=== PATIENT | female | born 1935 | race Caucasian/White ===

== ENCOUNTER → 2020-01-09 10:50 | Outpatient (BNVA) | payer MEDICARE, MEDICAID, SELFPAY | PROVIDERS: Family Provider Nurse Practitioner Family; PCP Nurse Practitioner Family; Visit Provider Emergency Medicine | DX: I10 Essential (primary) hypertension (principal); N18.9 Chronic kidney disease, unspecified; E87.6 Hypokalemia; G47.62 Sleep related leg cramps | CPT/HCPCS: 80053; 83880; 85025 ==

== ENCOUNTER → 2020-10-01 09:36 | Outpatient (BNVA) | payer MEDICARE, MEDICAID, SELFPAY | PROVIDERS: Family Provider Nurse Practitioner Family; PCP Nurse Practitioner Family; Visit Provider Emergency Medicine | DX: E87.6 Hypokalemia (principal); N18.9 Chronic kidney disease, unspecified; M25.569 Pain in unspecified knee; Z79.899 Other long term (current) drug therapy | CPT/HCPCS: 73562; 80053; 84443; 85025 ==

== ENCOUNTER → 2022-02-22 09:51 | Outpatient (BNVA) | payer MEDICARE, MEDICAID, SELFPAY | PROVIDERS: Family Provider Nurse Practitioner Family; Visit Provider Nurse Practitioner Family | DX: M79.672 Pain in left foot (principal) | CPT/HCPCS: 73630 ==

== ENCOUNTER → 2022-04-12 09:53 | Outpatient (BNVA) | payer MEDICARE, MEDICAID, SELFPAY | PROVIDERS: Family Provider Nurse Practitioner Family; PCP Family Medicine; Visit Provider Family Medicine | DX: I10 Essential (primary) hypertension (principal); K21.9 Gastro-esophageal reflux disease without esophagitis; M79.606 Pain in leg, unspecified; N18.9 Chronic kidney disease, unspecified; Z74.09 Other reduced mobility; Z78.9 Other specified health status; R54 Age-related physical debility; Z91.81 History of falling; I16.0 Hypertensive urgency; M79.605 Pain in left leg; E87.6 Hypokalemia; Z13.220 Encounter for screening for lipoid disorders; Z13.6 Encounter for screening for cardiovascular disorders; Z76.89 Persons encountering health services in other specified circumstances; R42 Dizziness and giddiness | CPT/HCPCS: 80053; 80061; 85025 ==

== ENCOUNTER 2022-07-27 13:25 | Emergency (ER) | payer MEDICARE, MEDICAID, SELFPAY ==
[2022-07-27 13:33] VITALS: BP 181/92; PULSE 72; RESP 14; TEMP 36.8; O2SAT 100
--- NOTE | 2022-07-27 13:43 | XRR_ITS ---
PROCEDURE INFORMATION: Exam: XR Chest Exam date and time: 07/27/2022 2:08 PM Age: 86 years old Clinical indication: Other: AMS; Covid positive TECHNIQUE: Imaging protocol: Radiologic exam of the chest. Views: 1 view. COMPARISON: No relevant prior studies available. FINDINGS: Lungs: There is minimal opacity in the left lung base suggesting subsegmental atelectasis or scarring. There is no consolidation. The right lung is clear. Pleural spaces: There is no pleural effusion or pneumothorax. Heart/Mediastinum: The thoracic aorta is ectatic. Heart size is normal. Bones/joints: Bones are unremarkable. XR/XR chest 1V portable [id number] IMPRESSION: No acute findings.
--- NOTE | 2022-07-27 13:44 | CT_ITS ---
WS: [id number] CT HEAD NONCONTRAST HISTORY: AMS, hallucinating TECHNIQUE: Contiguous axial imaging performed through the brain in 2.5 mm imaging. Bone and soft tiss ue windows. Sagittal and coronal reformats reviewed. All CT scans at [facility] use at least one of these dose optimization techniques: automated exposure control; mA and/or kV adjustment per pa tient size (includes targeted exams where dose is matched to clinical indication); or iterative recon struction. DLP: 1129.70 mGy-cm. COMPARISON: None available. No acute intracranial hemorrhage, midline shift or mass effect. Mild symmetric atrophy. Mild small vessel ischemic disease. Densely calcified mass RIGHT posterior fa lcine region measures 2.0 x 2.3 cm. Do believe there is a dural tail and this is probably an extra-ax ial mass consistent with a meningioma. There is an additional much smaller extra-axial mass measuring 0.4 cm over the posterior RIGHT parietal region. Ventricles: Normal size with no hydrocephalus. Paranasal sinuses: Mild mucoperiosteal thickening in the LEFT maxillary sinus. Mastoid air cells: Small amount of fluid RIGHT mastoid air cells. Calvarium and scalp: Skull is intact with no soft tissue edema or swelling. Heavy calcification in the intracranial carotid arteries. CT/CT head wo con* [id number] IMPRESSION: 1. No acute intracranial hemorrhage or edema. 2. Mild atrophy and small vessel ischemic disease. 3. Superior posterior RIGHT parafalcine heavily calcified extra-axial mass roxanne sures 2.0 x 2.3 cm consistent with a small meningioma. There is an additional s mall meningioma in the posterior RIGHT parietal region measuring only 4 mm.
--- NOTE | 2022-07-27 13:44 | W.ED.AMS ---
Documented by User: JOSÉ LUIS Gomez 07/27/22 16:46 HPI - Altered Mental Status General: Chief Complaint: Altered Mental Status Stated Complaint: COVID POSITIVE Time Seen by Provider: 07/27/22 13:30 Source: patient and EMS Mode of arrival: EMS Limitations: altered mental status History of Present Illness: Patient is an 86-year-old female presents to ED today from [facility] via EMS for evaluation of altered mental status. EMS states that patient tested positive for COVID a few days ago and they re-tested her again today which again was positive. They state patient is having confusion and altered mental status stating she is having auditory and visual hallucinations. They have not documented any fevers. Upon arrival patient can tell me her name. She cannot tell me her , the date or location. Her speech is disorganized/illogical-she telling me not to put pig's feet on her and not to lock her in the basement. She also reportedly is seeing babies down the hallway. [facility] states that patient was staggering around facility, acting bizarre, states she picked up her TV and bedside commode and placed behind her bedroom door and then was screaming that staff was barricading her in her room, she threatened staff that she was going to kill them, and overall just acting very uncharacteristic for her. MD complaint: altered mental status, confusion and other (COVID +) Onset (ago): day(s) Timing confirmed by: caregiver Severity: moderate Context: other (COVID +) Associated symptoms: Reports auditory hallucinations and visual hallucinations Review of Systems General: Reports: ROS unobtainable due to medical condition and ROS unobtainable due to mental status Psych: Reports: visual hallucinations and auditory hallucinations [facility] ED PFSH: Medical History CKD (chronic kidney disease) History of essential hypertension Hypertension Hypokalemia Misuse of [id number] medications Social History Smoking and tobacco status: current every day smoker Alcohol intake: never Female Reproductive History: Spontaneous abortions: No Physical Exam Const: COMMON NORMALS: no acute distress, average body habitus, alert and well nourished EXAM LIMITATIONS: altered mental status GENERAL APPEARANCE: cooperative ORIENTATION/CONSCIOUSNESS: Yes awake and Yes confused HENMT: COMMON NORMALS: normocephalic and atraumatic HEAD & SCALP: normal to inspection, normocephalic and atraumatic FACE & SINUS: normal facial exam Eye: GENERAL EYE: appearance normal, both eyes and all related structures Neck/C-Spine: COMMON NORMALS: full ROM, no lymphadenopathy and no meningeal signs GENERAL: Yes normal visual inspection, No anterior neck swelling and No submandibular swelling Chest: COMMONS NORMALS: normal inspection of the chest and normal palpation of entire chest wall Resp: COMMON NORMALS: normal respiratory effort and clear to auscultation bilaterally AUSCULTATION: clear to auscultation bilaterally Cardio: COMMON NORMALS: regular rate and regular rhythm RATE: regular rate RHYTHM: regular rhythm GI: COMMON NORMALS: Normal to inspection, nondistended, normoactive bowel sounds present, Soft to palpation, non-tender, No hepatosplenomegaly present and no masses PALPATION: Yes Soft to palpation and Yes No hepatosplenomegaly present : COMMON NORMALS: Yes no CVA tenderness BLADDER/KIDNEY EXAM: Yes no CVA tenderness Back/Pelvis: COMMON NORMALS: no CVA tenderness, thoracic and lumbar spine normal to inspection, no thoracic nor lumbar tenderness and thoraco-lumbar ROM normal Extremity: COMMON NORMALS: normal to inspection GENERAL: Yes normal exam except as noted Neuro: LAURA COMA SCALE: document GCS findings Laura coma scale eye opening: Spontaneous Laura coma scale verbal response: Confused Laura coma scale motor response: Obey commands [place] coma scale total score: 14 COMMON NORMALS: CN's II-XII intact bilaterally, moves all extremities, no focal motor deficits and no sensory deficits noted SENSORIUM/ORIENTATION: Yes alert MENINGEAL SIGNS: Yes no meningeal signs Skin: TRAUMA: no lacerations or abrasions Course Consultations: Consultation #1: Dr. Jones-recommends discharge back to [facility] with Geodon they can give for agitation/delirium Vital Signs: Vital signs: Vital Signs Temperature 98.2 F 07/27/22 13:33 Pulse Rate 67 07/27/22 21:09 Respiratory Rate 14 07/27/22 13:33 Blood Pressure 178/83 07/27/22 21:09 Pulse Oximetry 98 07/27/22 21:09 Oxygen Delivery Me thod 07/27/22 13:33 MDM - Altered Mental Status Medical Decision Making Patient is an 86-year-old female here from her SNF [facility] for evaluation of altered mental status. Patient tested positive for COVID several days ago. They retested her today and she was again positive. They state at home she has not been acting like herself and has been acting very bizarre and even aggressive at times. Upon arrival patient has normal vital signs apart from some hypertension which she does have a history of. She is clearly confused and altered and cannot provide much of a history. Speech is bizarre and illogical. Blood work overall is fairly unremarkable. She is slightly leukopenic which is consistent with her known COVID diagnosis. Chemistry shows mild hypokalemia at 3.4. She has got a minor bump in her creatinine at 1.3 consistent with her known chronic kidney disease. Her UA is clear. Drug screen is negative. CXR is normal. Head CT showing no acute findings. She does have incidental meningiomas. I spoke to the hospitalist to try to admit for altered mental status/acute delirium secondary to COVID but they feel patient is stable for discharge back to her [facility] as there is limited treatment options from a hospital setting. I spoke to Mira Cruz who feels comfortable taking patient back. Specialist had recommended placing patient on a low-dose Geodon (5mg) however this medication only comes in capsules with 20mg being the lowest dose. I spoke to Dr. Hurst who recommended placing patient on 0.125 mg risperidone. Return to ED precautions were discussed with Mira Cruz. Lab Data 07/27/22 14:40 07/27/22 14:40 Radiology Impressions Chest X-Ray 07/27/22 13:43 IMPRESSION: No acute findings. Head CT 07/27/22 13:44 IMPRESSION: 1. No acute intracranial hemorrhage or edema. 2. Mild atrophy and small vessel ischemic disease. 3. Superior posterior RIGHT parafalcine heavily calcified extra-axial mass measures 2.0 x 2.3 cm consistent with a small meningioma. There is an additional small meningioma in the posterior RIGHT parietal region measuring only 4 mm. Laboratory Results WBC 2.9 10^3/uL (4.0-10.0) L 07/27/22 14:40 RBC 4.02 10^6/uL (4.1-5.3) L 07/27/22 14:40 Hgb 12.4 g/dL (11.5-15.3) 07/27/22 14:40 Hct 36.4 % (37.0-47.0) L 07/27/22 14:40 MCV 90.5 fl (81-99) 07/27/22 14:40 MCH 30.8 pg (28.0-34.0) 07/27/22 14:40 MCHC 34.1 g/dL (30.0-36.0) 07/27/22 14:40 RDW 12.7 % (12.1-15.1) 07/27/22 14:40 Plt Count 187 10^3/cmm (130-400) 07/27/22 14:40 MPV 10.3 fL (7.4-10.4) 07/27/22 14:40 Neut % (Auto) 59.2 % 07/27/22 14:40 Lymph % (Auto) 26.2 % 07/27/22 14:40 Addison % (Auto) 14.0 % 07/27/22 14:40 Eos % (Auto) 0.0 % 07/27/22 14:40 Baso % (Auto) 0.3 % 07/27/22 14:40 Neut # (Auto) 1.69 10^3/uL (1.8-7.7) L 07/27/22 14:40 Lymph # (Auto) 0.8 10^3/uL (0.8-4.8) 07/27/22 14:40 Addison # (Auto) 0.4 10^3/uL (0.2-0.9) 07/27/22 14:40 Eos # (Auto) 0.0 10^3/uL (0.0-0.8) 07/27/22 14:40 Baso # (Auto) 0.0 10^3/uL (0.0-0.1) 07/27/22 14:40 Nucleated RBC % (auto) 0 % 07/27/22 14:40 Nucleated RBCs # 0.0 /100WBC 07/27/22 14:40 Sodium 136 mmol/L (136-145) 07/27/22 14:40 Potassium 3.4 mmol/L (3.5-5.1) L 07/27/22 14:40 Chloride 96 mmol/L (98-107) L 07/27/22 14:40 Carbon Dioxide 28 mmol/L (22-29) 07/27/22 14:40 Anion Gap 15.4 (5-19) 07/27/22 14:40 BUN 16 mg/dL (8-23) 07/27/22 14:40 Creatinine 1.3 mg/dL (0.5-0.9) H 07/27/22 14:40 GFR Calculation Not Reportable 07/27/22 14:40 Glucose 86 mg/dL (65-115) 07/27/22 14:40 Calculated Osmolality 282 mOsm/kg (285-295) L 07/27/22 14:40 Lactic Acid 0.8 mmol/L (0.5-2.2) 07/27/22 14:40 Calcium 9.0 mg/dL (8.5-10.5) 07/27/22 14:40 Total Bilirubin 0.6 mg/dL (0.15-1.2) 07/27/22 14:40 AST 37 U/L (0-32) H 07/27/22 14:40 ALT 20 U/L (0-33) 07/27/22 14:40 Alkaline Phosphatase 63 U/L (35-105) 07/27/22 14:40 Total Protein 6.9 g/dL (6.6-8.7) 07/27/22 14:40 Albumin 4.2 g/dL (3.5-5.2) 07/27/22 14:40 Globulin 2.7 g/dL (1.3-4.6) 07/27/22 14:40 Procalcitonin 0.11 ng/mL (0-0.5) 07/27/22 14:40 Urine Color Triny (Yellow) 07/27/22 13:58 Urine Appearance Clear (CLEAR) 07/27/22 13:58 Urine pH 6 (5-7) 07/27/22 13:58 Ur Specific [place] 1.020 (1.005-1.030) 07/27/22 13:58 Urine Protein Neg (Negative) 07/27/22 13:58 Urine Glucose (UA) Norm (Normal) 07/27/22 13:58 Urine Ketones Negative (Negative) 07/27/22 13:58 Urine Blood Neg (Negative) 07/27/22 13:58 Urine Nitrate Negative (Negative) 07/27/22 13:58 Urine Bilirubin Neg (Negative) 07/27/22 13:58 Urine Urobilinogen Neg mg/dL (Negative) 07/27/22 13:58 Ur Leukocyte Esterase Negative (Negative) 07/27/22 13:58 Salicylates < 0.3 mg/dL (3-10) L 07/27/22 14:40 Urine Opiates Screen Negative ng/mL (Negative) 07/27/22 13:58 Acetaminophen < 5.0 ug/mL (10-30) L 07/27/22 14:40 Ur Barbiturates Screen Negative ng/mL (Negative) 07/27/22 13:58 Ur Phencyclidine Scrn Negative ng/mL (Negative) 07/27/22 13:58 Ur Amphetamines Screen Negative ng/mL (Negative) 07/27/22 13:58 U Benzodiazepines Scrn Negative ng/mL (Negative) 07/27/22 13:58 Urine Cocaine Screen Negative ng/mL (Negative) 07/27/22 13:58 U Marijuana (THC) Screen Negative ng/mL (Negative) 07/27/22 13:58 Discharge Plan Discharge Patient Disposition: Home Clinical Impression: Acute delirium, COVID-19 Condition: Stable Prescriptions: New risperidone 0.25 mg tablet 0.125 mg PO DAILY PRN (Reason: agitation) Qty: 10 0RF Rx Instructions: Start 1/2 tab (0.125mg) daily as needed for agitation. Can increase to full tab daily if lower dose not effective. No Action omeprazole 40 mg capsule,delayed release(DR/EC) 40 mg PO DAILY 90 Days Qty: 90 0RF acetaminophen 325 mg Tablet 325 mg PO QID PRN (Reason: Pain) irbesartan-hydrochlorothiazide 150-12.5 mg Tablet 2 tab PO DAILY meloxicam 15 mg Tablet 15 mg PO BEDTIME Milk of Magnesia 400 mg/5 mL Suspension 30 ml PO DAILY PRN (Reason: Constipation) Dulcolax (bisacodyl) 10 mg Suppository 10 mg AR DAILY PRN (Reason: Constipation) magnesium citrate Solution 300 ml PO DAILY PRN (Reason: Constipation) Mylanta 200-200-20 mg/5 mL Suspension 30 ml PO Q2H PRN (Reason: Indigestion) Rx Instructions: administer between meals Mucinex 600 mg Tablet Extended Release 12hr 600 mg PO Q12H Rx Instructions: x 5 days Mucinex 600 mg Tablet Extended Release 12hr 600 mg PO Q12H PRN (Reason: Congestion) Discharge Orders: Discharge ED (Routine); Ordered 07/27/22 Ordered By: Ebony Encarnacion Referrals: Priyanka Tariq MD [Primary Care Provider] - Coding Level of Care Code ED Cabin Service Agent for Chg Fwd Documented by User: SYLVIA Bear 07/27/22 21:08 HPI - Altered Mental Status General: Chief Complaint: Altered Mental Status Stated Complaint: COVID POSITIVE Time Seen by Provider: 07/27/22 13:30 PFSH ED PFSH: Medical History CKD (chronic kidney disease) History of essential hypertension Hypertension Hypokalemia Misuse of [id number] medications Social History Smoking and tobacco status: current every day smoker Alcohol intake: never Physical Exam Neuro: LAURA COMA SCALE: document GCS findings Laura coma scale total score: 14 Course Vital Signs: Vital signs: Vital Signs Temperature 98.2 F 07/27/22 13:33 Pulse Rate 67 07/27/22 21:09 Respiratory Rate 14 07/27/22 13:33 Blood Pressure 178/83 07/27/22 21:09 Pulse Oximetry 98 07/27/22 21:09 Oxygen Delivery Me thod 07/27/22 13:33 MDM - Altered Mental Status Medical Decision Making Patient is an 86-year-old female here from her SNF [facility] for evaluation of altered mental status. Patient tested positive for COVID several days ago. They retested her today and she was again positive. They state at home she has not been acting like herself and has been acting very bizarre and even aggressive at times. Upon arrival patient has normal vital signs apart from some hypertension which she does have a history of. She is clearly confused and altered and cannot provide much of a history. Speech is bizarre and illogical. Blood work overall is fairly unremarkable. She is slightly leukopenic which is consistent with her known COVID diagnosis. Chemistry shows mild hypokalemia at 3.4. She has got a minor bump in her creatinine at 1.3 consistent with her known chronic kidney disease. Her UA is clear. Drug screen is negative. CXR is normal. Head CT showing no acute findings. She does have incidental meningiomas. I spoke to the hospitalist to try to admit for altered mental status/acute delirium secondary to COVID but they feel patient is stable for discharge back to her [facility] as there is limited treatment options from a hospital setting. I spoke to Mira Cruz who feels comfortable taking patient back. Specialist had recommended placing patient on a low-dose Geodon (5mg) however this medication only comes in capsules with 20mg being the lowest dose. I spoke to Dr. Hurst who recommended placing patient on 0.125 mg risperidone. Return to ED precautions were discussed with Miar Cruz. 2106?patient getting ready to be discharged back to the [facility] and blood pressure hypertensive 181/92. I discussed this patient with Dr. Mcdaniel and he agreed with dosing patient with hydralazine 10 mg IV push prior to discharge. Lab Data 07/27/22 14:40 07/27/22 14:40 Radiology Impressions Chest X-Ray 07/27/22 13:43 IMPRESSION: No acute findings. Head CT 07/27/22 13:44 IMPRESSION: 1. No acute intracranial hemorrhage or edema. 2. Mild atrophy and small vessel ischemic disease. 3. Superior posterior RIGHT parafalcine heavily calcified extra-axial mass measures 2.0 x 2.3 cm consistent with a small meningioma. There is an additional small meningioma in the posterior RIGHT parietal region measuring only 4 mm. Laboratory Results WBC 2.9 10^3/uL (4.0-10.0) L 07/27/22 14:40 RBC 4.02 10^6/uL (4.1-5.3) L 07/27/22 14:40 Hgb 12.4 g/dL (11.5-15.3) 07/27/22 14:40 Hct 36.4 % (37.0-47.0) L 07/27/22 14:40 MCV 90.5 fl (81-99) 07/27/22 14:40 MCH 30.8 pg (28.0-34.0) 07/27/22 14:40 MCHC 34.1 g/dL (30.0-36.0) 07/27/22 14:40 RDW 12.7 % (12.1-15.1) 07/27/22 14:40 Plt Count 187 10^3/cmm (130-400) 07/27/22 14:40 MPV 10.3 fL (7.4-10.4) 07/27/22 14:40 Neut % (Auto) 59.2 % 07/27/22 14:40 Lymph % (Auto) 26.2 % 07/27/22 14:40 Addison % (Auto) 14.0 % 07/27/22 14:40 Eos % (Auto) 0.0 % 07/27/22 14:40 Baso % (Auto) 0.3 % 07/27/22 14:40 Neut # (Auto) 1.69 10^3/uL (1.8-7.7) L 07/27/22 14:40 Lymph # (Auto) 0.8 10^3/uL (0.8-4.8) 07/27/22 14:40 Addison # (Auto) 0.4 10^3/uL (0.2-0.9) 07/27/22 14:40 Eos # (Auto) 0.0 10^3/uL (0.0-0.8) 07/27/22 14:40 Baso # (Auto) 0.0 10^3/uL (0.0-0.1) 07/27/22 14:40 Nucleated RBC % (auto) 0 % 07/27/22 14:40 Nucleated RBCs # 0.0 /100WBC 07/27/22 14:40 Sodium 136 mmol/L (136-145) 07/27/22 14:40 Potassium 3.4 mmol/L (3.5-5.1) L 07/27/22 14:40 Chloride 96 mmol/L (98-107) L 07/27/22 14:40 Carbon Dioxide 28 mmol/L (22-29) 07/27/22 14:40 Anion Gap 15.4 (5-19) 07/27/22 14:40 BUN 16 mg/dL (8-23) 07/27/22 14:40 Creatinine 1.3 mg/dL (0.5-0.9) H 07/27/22 14:40 GFR Calculation Not Reportable 07/27/22 14:40 Glucose 86 mg/dL (65-115) 07/27/22 14:40 Calculated Osmolality 282 mOsm/kg (285-295) L 07/27/22 14:40 Lactic Acid 0.8 mmol/L (0.5-2.2) 07/27/22 14:40 Calcium 9.0 mg/dL (8.5-10.5) 07/27/22 14:40 Total Bilirubin 0.6 mg/dL (0.15-1.2) 07/27/22 14:40 AST 37 U/L (0-32) H 07/27/22 14:40 ALT 20 U/L (0-33) 07/27/22 14:40 Alkaline Phosphatase 63 U/L (35-105) 07/27/22 14:40 Total Protein 6.9 g/dL (6.6-8.7) 07/27/22 14:40 Albumin 4.2 g/dL (3.5-5.2) 07/27/22 14:40 Globulin 2.7 g/dL (1.3-4.6) 07/27/22 14:40 Procalcitonin 0.11 ng/mL (0-0.5) 07/27/22 14:40 Urine Color Triny (Yellow) 07/27/22 13:58 Urine Appearance Clear (CLEAR) 07/27/22 13:58 Urine pH 6 (5-7) 07/27/22 13:58 Ur Specific [place] 1.020 (1.005-1.030) 07/27/22 13:58 Urine Protein Neg (Negative) 07/27/22 13:58 Urine Glucose (UA) Norm (Normal) 07/27/22 13:58 Urine Ketones Negative (Negative) 07/27/22 13:58 Urine Blood Neg (Negative) 07/27/22 13:58 Urine Nitrate Negative (Negative) 07/27/22 13:58 Urine Bilirubin Neg (Negative) 07/27/22 13:58 Urine Urobilinogen Neg mg/dL (Negative) 07/27/22 13:58 Ur Leukocyte Esterase Negative (Negative) 07/27/22 13:58 Salicylates < 0.3 mg/dL (3-10) L 07/27/22 14:40 Urine Opiates Screen Negative ng/mL (Negative) 07/27/22 13:58 Acetaminophen < 5.0 ug/mL (10-30) L 07/27/22 14:40 Ur Barbiturates Screen Negative ng/mL (Negative) 07/27/22 13:58 Ur Phencyclidine Scrn Negative ng/mL (Negative) 07/27/22 13:58 Ur Amphetamines Screen Negative ng/mL (Negative) 07/27/22 13:58 U Benzodiazepines Scrn Negative ng/mL (Negative) 07/27/22 13:58 Urine Cocaine Screen Negative ng/mL (Negative) 07/27/22 13:58 U Marijuana (THC) Screen Negative ng/mL (Negative) 07/27/22 13:58 Discharge Plan Discharge Patient Disposition: Home Clinical Impression: Acute delirium, COVID-19 Condition: Stable Prescriptions: New risperidone 0.25 mg tablet 0.125 mg PO DAILY PRN (Reason: agitation) Qty: 10 0RF Rx Instructions: Start 1/2 tab (0.125mg) daily as needed for agitation. Can increase to full tab daily if lower dose not effective. No Action omeprazole 40 mg capsule,delayed release(DR/EC) 40 mg PO DAILY 90 Days Qty: 90 0RF acetaminophen 325 mg Tablet 325 mg PO QID PRN (Reason: Pain) irbesartan-hydrochlorothiazide 150-12.5 mg Tablet 2 tab PO DAILY meloxicam 15 mg Tablet 15 mg PO BEDTIME Milk of Magnesia 400 mg/5 mL Suspension 30 ml PO DAILY PRN (Reason: Constipation) Dulcolax (bisacodyl) 10 mg Suppository 10 mg AR DAILY PRN (Reason: Constipation) magnesium citrate Solution 300 ml PO DAILY PRN (Reason: Constipation) Mylanta 200-200-20 mg/5 mL Suspension 30 ml PO Q2H PRN (Reason: Indigestion) Rx Instructions: administer between meals Mucinex 600 mg Tablet Extended Release 12hr 600 mg PO Q12H Rx Instructions: x 5 days Mucinex 600 mg Tablet Extended Release 12hr 600 mg PO Q12H PRN (Reason: Congestion) Discharge Orders: Discharge ED (Routine); Ordered 07/27/22 Ordered By: Ebony Encarnacion Referrals: Priyanka Tariq MD [Primary Care Provider] - Coding Level of Care Code ED Cabin Service Agent for Chg Fwd Documented by User: Douglas Hurst DO 07/28/22 07:05 HPI - Altered Mental Status General: Chief Complaint: Altered Mental Status Stated Complaint: COVID POSITIVE Time Seen by Provider: 07/27/22 13:30 PFSH ED PFSH: Medical History CKD (chronic kidney disease) History of essential hypertension Hypertension Hypokalemia Misuse of swfw-xlu-wkzfvll medications Social History Smoking and tobacco status: current every day smoker Alcohol intake: never Physical Exam Neuro: LAURA COMA SCALE: document GCS findings Laura coma scale total score: 14 Course Vital Signs: Vital signs: Vital Signs Temperature 98.2 F 07/27/22 13:33 Pulse Rate 67 07/27/22 21:09 Respiratory Rate 14 07/27/22 13:33 Blood Pressure 178/83 07/27/22 21:09 Pulse Oximetry 98 07/27/22 21:09 Oxygen Delivery Me thod 07/27/22 13:33 MDM - Altered Mental Status Medical Decision Making Patient is an 86-year-old female here from her SNF [facility] for evaluation of altered mental status. Patient tested positive for COVID several days ago. They retested her today and she was again positive. They state at home she has not been acting like herself and has been acting very bizarre and even aggressive at times. Upon arrival patient has normal vital signs apart from some hypertension which she does have a history of. She is clearly confused and altered and cannot provide much of a history. Speech is bizarre and illogical. Blood work overall is fairly unremarkable. She is slightly leukopenic which is consistent with her known COVID diagnosis. Chemistry shows mild hypokalemia at 3.4. She has got a minor bump in her creatinine at 1.3 consistent with her known chronic kidney disease. Her UA is clear. Drug screen is negative. CXR is normal. Head CT showing no acute findings. She does have incidental meningiomas. I spoke to the hospitalist to try to admit for altered mental status/acute delirium secondary to COVID but they feel patient is stable for discharge back to her [facility] as there is limited treatment options from a hospital setting. I spoke to Mira Cruz who feels comfortable taking patient back. Specialist had recommended placing patient on a low-dose Geodon (5mg) however this medication only comes in capsules with 20mg being the lowest dose. I spoke to Dr. Hurst who recommended placing patient on 0.125 mg risperidone. Return to ED precautions were discussed with Mira Cruz. 2106?patient getting ready to be discharged back to the [facility] and blood pressure hypertensive 181/92. I discussed this patient with Dr. Mcdaniel and he agreed with dosing patient with hydralazine 10 mg IV push prior to discharge. Chart reviewed and patient discussed with midlevel. Agree with assessment and plan. Lab Data 07/27/22 14:40 07/27/22 14:40 Radiology Impressions Chest X-Ray 07/27/22 13:43 IMPRESSION: No acute findings. Head CT 07/27/22 13:44 IMPRESSION: 1. No acute intracranial hemorrhage or edema. 2. Mild atrophy and small vessel ischemic disease. 3. Superior posterior RIGHT parafalcine heavily calcified extra-axial mass measures 2.0 x 2.3 cm consistent with a small meningioma. There is an additional small meningioma in the posterior RIGHT parietal region measuring only 4 mm. Laboratory Results WBC 2.9 10^3/uL (4.0-10.0) L 07/27/22 14:40 RBC 4.02 10^6/uL (4.1-5.3) L 07/27/22 14:40 Hgb 12.4 g/dL (11.5-15.3) 07/27/22 14:40 Hct 36.4 % (37.0-47.0) L 07/27/22 14:40 MCV 90.5 fl (81-99) 07/27/22 14:40 MCH 30.8 pg (28.0-34.0) 07/27/22 14:40 MCHC 34.1 g/dL (30.0-36.0) 07/27/22 14:40 RDW 12.7 % (12.1-15.1) 07/27/22 14:40 Plt Count 187 10^3/cmm (130-400) 07/27/22 14:40 MPV 10.3 fL (7.4-10.4) 07/27/22 14:40 Neut % (Auto) 59.2 % 07/27/22 14:40 Lymph % (Auto) 26.2 % 07/27/22 14:40 Addison % (Auto) 14.0 % 07/27/22 14:40 Eos % (Auto) 0.0 % 07/27/22 14:40 Baso % (Auto) 0.3 % 07/27/22 14:40 Neut # (Auto) 1.69 10^3/uL (1.8-7.7) L 07/27/22 14:40 Lymph # (Auto) 0.8 10^3/uL (0.8-4.8) 07/27/22 14:40 Addison # (Auto) 0.4 10^3/uL (0.2-0.9) 07/27/22 14:40 Eos # (Auto) 0.0 10^3/uL (0.0-0.8) 07/27/22 14:40 Baso # (Auto) 0.0 10^3/uL (0.0-0.1) 07/27/22 14:40 Nucleated RBC % (auto) 0 % 07/27/22 14:40 Nucleated RBCs # 0.0 /100WBC 07/27/22 14:40 Sodium 136 mmol/L (136-145) 07/27/22 14:40 Potassium 3.4 mmol/L (3.5-5.1) L 07/27/22 14:40 Chloride 96 mmol/L (98-107) L 07/27/22 14:40 Carbon Dioxide 28 mmol/L (22-29) 07/27/22 14:40 Anion Gap 15.4 (5-19) 07/27/22 14:40 BUN 16 mg/dL (8-23) 07/27/22 14:40 Creatinine 1.3 mg/dL (0.5-0.9) H 07/27/22 14:40 GFR Calculation Not Reportable 07/27/22 14:40 Glucose 86 mg/dL (65-115) 07/27/22 14:40 Calculated Osmolality 282 mOsm/kg (285-295) L 07/27/22 14:40 Lactic Acid 0.8 mmol/L (0.5-2.2) 07/27/22 14:40 Calcium 9.0 mg/dL (8.5-10.5) 07/27/22 14:40 Total Bilirubin 0.6 mg/dL (0.15-1.2) 07/27/22 14:40 AST 37 U/L (0-32) H 07/27/22 14:40 ALT 20 U/L (0-33) 07/27/22 14:40 Alkaline Phosphatase 63 U/L (35-105) 07/27/22 14:40 Total Protein 6.9 g/dL (6.6-8.7) 07/27/22 14:40 Albumin 4.2 g/dL (3.5-5.2) 07/27/22 14:40 Globulin 2.7 g/dL (1.3-4.6) 07/27/22 14:40 Procalcitonin 0.11 ng/mL (0-0.5) 07/27/22 14:40 Urine Color Triny (Yellow) 07/27/22 13:58 Urine Appearance Clear (CLEAR) 07/27/22 13:58 Urine pH 6 (5-7) 07/27/22 13:58 Ur Specific [place] 1.020 (1.005-1.030) 07/27/22 13:58 Urine Protein Neg (Negative) 07/27/22 13:58 Urine Glucose (UA) Norm (Normal) 07/27/22 13:58 Urine Ketones Negative (Negative) 07/27/22 13:58 Urine Blood Neg (Negative) 07/27/22 13:58 Urine Nitrate Negative (Negative) 07/27/22 13:58 Urine Bilirubin Neg (Negative) 07/27/22 13:58 Urine Urobilinogen Neg mg/dL (Negative) 07/27/22 13:58 Ur Leukocyte Esterase Negative (Negative) 07/27/22 13:58 Salicylates < 0.3 mg/dL (3-10) L 07/27/22 14:40 Urine Opiates Screen Negative ng/mL (Negative) 07/27/22 13:58 Acetaminophen < 5.0 ug/mL (10-30) L 07/27/22 14:40 Ur Barbiturates Screen Negative ng/mL (Negative) 07/27/22 13:58 Ur Phencyclidine Scrn Negative ng/mL (Negative) 07/27/22 13:58 Ur Amphetamines Screen Negative ng/mL (Negative) 07/27/22 13:58 U Benzodiazepines Scrn Negative ng/mL (Negative) 07/27/22 13:58 Urine Cocaine Screen Negative ng/mL (Negative) 07/27/22 13:58 U Marijuana (THC) Screen Negative ng/mL (Negative) 07/27/22 13:58 Discharge Plan Discharge Patient Disposition: Home Clinical Impression: Acute delirium, COVID-19 Condition: Stable Prescriptions: New risperidone 0.25 mg tablet 0.125 mg PO DAILY PRN (Reason: agitation) Qty: 10 0RF Rx Instructions: Start 1/2 tab (0.125mg) daily as needed for agitation. Can increase to full tab daily if lower dose not effective. No Action omeprazole 40 mg capsule,delayed release(DR/EC) 40 mg PO DAILY 90 Days Qty: 90 0RF acetaminophen 325 mg Tablet 325 mg PO QID PRN (Reason: Pain) irbesartan-hydrochlorothiazide 150-12.5 mg Tablet 2 tab PO DAILY meloxicam 15 mg Tablet 15 mg PO BEDTIME Milk of Magnesia 400 mg/5 mL Suspension 30 ml PO DAILY PRN (Reason: Constipation) Dulcolax (bisacodyl) 10 mg Suppository 10 mg AR DAILY PRN (Reason: Constipation) magnesium citrate Solution 300 ml PO DAILY PRN (Reason: Constipation) Mylanta 200-200-20 mg/5 mL Suspension 30 ml PO Q2H PRN (Reason: Indigestion) Rx Instructions: administer between meals Mucinex 600 mg Tablet Extended Release 12hr 600 mg PO Q12H Rx Instructions: x 5 days Mucinex 600 mg Tablet Extended Release 12hr 600 mg PO Q12H PRN (Reason: Congestion) Discharge Orders: Discharge ED (Routine); Ordered 07/27/22 Ordered By: Ebony Encarnacion Referrals: Priyanka Tariq MD [Primary Care Provider] - Coding Level of Care Code ED Cabin Service Agent for [place]
[2022-07-27 14:59] LABS: Basophils % 0.3 %; Hematocrit 36.4 % (37.0-47.0); Hemoglobin 12.4 g/dL (11.5-15.3); Lymphocytes # 0.8 10^3/uL (0.8-4.8); Lymphocytes % 26.2 %; Mean Corpuscular HGB Conc 34.1 g/dL (30.0-36.0); Mean Corpuscular Hemoglobin 30.8 pg (28.0-34.0); Mean Corpuscular Volume 90.5 fl (81-99); Mean Platelet Volume 10.3 fL (7.4-10.4); Monocytes # 0.4 10^3/uL (0.2-0.9); Neutrophils # 1.69 10^3/uL (1.8-7.7); Neutrophils % 59.2 %; Nucleated Red Blood Cells % 0 %; Platelet Count 187 10^3/cmm (130-400); Red Blood Count 4.02 10^6/uL (4.1-5.3); Red Cell Distribution Width 12.7 % (12.1-15.1); White Blood Count 2.9 10^3/uL (4.0-10.0)
[2022-07-27 15:01] LABS: Add Urine Microscopic? NO; Charge for UA Resulting for Rev
[2022-07-27 15:11] LABS: Bilirubin Urine Neg (Negative); Blood Urine Neg (Negative); Glucose Urine UA Norm (Normal); Ketones Urine Negative (Negative); Leukocyte Esterase Urine Negative (Negative); Nitrate Urine Negative (Negative); Protein Urine Neg (Negative); Urine Appearance Clear (CLEAR); Urine Color Amber (Yellow); Urobilinogen Urine Neg (Negative); pH Urine 6 (5-7)
[2022-07-27 15:15] LABS: Lactic Sepsis W/Reflex 0.8 mmol/L (0.5-2.2)
[2022-07-27 15:18] LABS: Alanine Aminotransferase 20 U/L (0-33); Albumin Level 4.2 g/dL (3.5-5.2); Alkaline Phosphatase 63 U/L (35-105); Anion Gap 15.4 (5-19); Aspartate Amino Transferase 37 U/L (0-32); Blood Urea Nitrogen 16 mg/dL (8-23); Carbon Dioxide 28 mmol/L (22-29); Chloride 96 mmol/L (98-107); Globulin 2.7 g/dL (1.3-4.6); Glucose 86 mg/dL (65-115); Osmolality Calculated 282 mOsm/kg (285-295); Potassium 3.4 mmol/L (3.5-5.1); Sodium 136 mmol/L (136-145); Total Bilirubin 0.6 mg/dL (0.15-1.2); Total Protein 6.9 g/dL (6.6-8.7)
[2022-07-27 15:19] LABS: Acetaminophen < 5.0 ug/mL (10-30); Salicylate < 0.3 mg/dL (3-10)
[2022-07-27 15:20] LABS: Amphetamines Screen Urine Negative (Negative); Barbiturates Screen Urine Negative (Negative); Benzodiazepines Screen Urine Negative (Negative); Cocaine Screen Urine Negative (Negative); Opiate Screen Urine Negative (Negative); PCP Screen Urine Negative (Negative); THC Screen Urine Negative (Negative)
[2022-07-27] MEDS: hyDRALAzine 20 mg/mL INJ 1 mL 5 MG IVP (15:20)
[2022-07-27 15:25] LABS: Procalcitonin 0.11 ng/mL (0-0.5)
[2022-07-27] MEDS: LORazepam 2 mg/mL INJ 1 mL 0.5 MG IVP (15:30)
[2022-07-27 21:09] VITALS: BP 178/83; PULSE 67; O2SAT 98
[2022-07-27] MEDS: hyDRALAzine 20 mg/mL INJ 1 mL 10 MG IVP (21:11)
== END 2022-07-27 21:37 | disposition home or self-care (01) ==
PROVIDERS: Emergency Provider Physician Assistant; PCP Family Medicine
DX: U07.1 COVID-19 (principal); R41.0 Disorientation, unspecified; E87.6 Hypokalemia; I12.9 Hypertensive chronic kidney disease with stage 1 through stage 4 chronic kidney disease, or unspecified chronic kidney disease; N18.9 Chronic kidney disease, unspecified; F17.200 Nicotine dependence, unspecified, uncomplicated
CPT/HCPCS: 36415; 70450; 71045; 80053; 80306; 80307; 81003; 83605; 84145; 85025; 87040; 96374; 96375; 96376; 99285; J0360; J2060

== ENCOUNTER 2022-09-20 07:27 | Emergency (ER) | payer MEDICARE, MEDICAID, SELFPAY ==
--- NOTE | 2022-09-20 07:30 | W.ED.NEUROSD ---
HPI - Neuro Symptoms/Deficit General: Chief Complaint: Neuro Symptoms/Deficit Stated Complaint: Stroke Alert Time Seen by Provider: 09/20/22 07:29 Source: patient Mode of arrival: EMS History of Present Illness: 86-year-old female arrives from the [facility] stroke alert. Last known well was midnight last night. She has previously had a stroke. She has some dementia. She is awake and alert. Dr. Georges and I seen her when she arrived initially. They are reporting some left-sided facial weakness some which appears to be due to her swelling on her face. She is able to assist with her stroke scoring. Onset (ago): hour(s) Timing confirmed by: caregiver Relieving factors: none Exacerbating factors: none Associated symptoms: Deny chest pain, cough, diaphoresis, fevers/chills, headache(s), anorexia, malaise, nausea, seizures, short of breath, syncope, tingling, vertigo, vomiting or weakness Review of Systems Const: Denies: fever(s), chills, malaise or diaphoresis ENMT: Denies: throat pain, nasal discharge or nasal congestion Card: Denies: chest pain or syncope Resp: Denies: dyspnea, productive cough or non-productive cough GI: Reports: abdominal pain; Denies: nausea or vomiting : Denies: flank pain, difficulty voiding, dysuria, urinary frequency or urinary urgency Musc: Denies: neck pain or back pain Skin/Breast: Denies: rash or pruritus Neuro: Denies: headache(s) or vertigo PFSH ED PFSH: Medical History CKD (chronic kidney disease) History of essential hypertension Hypertension Hypokalemia Misuse of [id number]-[id number] medications Social History Smoking and tobacco status: current every day smoker Alcohol intake: never Substance/Drug Use: never Female Reproductive History: Spontaneous abortions: No NIH stroke score NIHSS: Level Of Consciousness - 1a: 0 Level Of Consciousness Questions - 1b: Both Correct Level Of Consciousness Commands - 1c: Both Correct Best Gaze - 2: Normal Visual Guo - 3: No Visual Loss Facial Palsy - 4: Normal Motor Arm Right - 5: No Drift Motor Arm Left - 5: No Drift Motor Leg Right - 6: No Drift Motor Leg Left - 6: No Drift Limb Ataxia - 7: Absent Sensory - 8: Normal Best Language - 9: No Aphasia Dysarthia - 10: Normal Extinction And Inattention - 11: 0 Score: Total Score: 0 Physical Exam Const: GENERAL APPEARANCE: cooperative and comfortable ORIENTATION/CONSCIOUSNESS: Yes awake HENMT: COMMON NORMALS: normocephalic and hearing grossly normal bilaterally HEAD & SCALP: normocephalic OTHER: Bruising appears 3 to 5 days old on the left side of the face consistent with history of fall Resp: COMMON NORMALS: normal respiratory effort, No retractions, No use of accessory muscles and clear to auscultation bilaterally AUSCULTATION: clear to auscultation bilaterally Cardio: COMMON NORMALS: regular rate, regular rhythm and No murmurs present (Cardio) RATE: regular rate RHYTHM: regular rhythm GI: COMMON NORMALS: Soft to palpation and No hepatosplenomegaly present AUSCULTATION: Yes normoactive bowel sounds PALPATION: Yes Soft to palpation, No Tenderness to palpation present (GI), No Guarding due to palpation present (GI) and Yes No hepatosplenomegaly present Extremity: COMMON NORMALS: normal to inspection, capillary refill normal, no clubbing, cyanosis or edema, no calf tenderness and no pedal edema Skin: COMMON NORMALS: no rashes or lesions noted GENERAL SKIN EXAM: no rashes or lesions noted Course Vital Signs: Vital signs: Vital Signs Temperature 98.2 F 09/20/22 07:57 Pulse Rate 69 09/20/22 09:21 Respiratory Rate 14 09/20/22 09:21 Blood Pressure 179/84 09/20/22 07:57 Pulse Oximetry 100 09/20/22 09:21 Oxygen Delivery Me thod Room Air 09/20/22 09:21 MDM - Neuro Symptoms/Deficit Medical Decision Making Patient seen on arrival by Dr. Georges who was in the department. He completed her NIH score and scored it was 0. I seen and evaluated the patient after him did not find any significant focal neurologic deficits also a stroke score of 0 on my exam. Discussed with Dr. Georges we both agree she is out of the window and with the exam findings on arrival he is not a candidate for any kind of embolectomy. Dr. Georges recommends outpatient work-up for echocardiogram and carotids. We also recommend dual platelet therapy with aspirin clopidogrel and atorvastatin. Medical Records I reviewed the patient's medical records. Lab Data I reviewed the patient's lab results. 09/20/22 07:50 09/20/22 07:[address] 09/20/22 07:32 IMPRESSION: 1. Stable right parafalcine mass most suggestive of meningioma. 2. Small extra-axial sub cm density at the right parietal lobe is stable. 3. Hemispheric volume loss. 4. Low attenuating white-matter changes suggesting micro vessel ischemia on a chronic basis. 5. Intracranial vascular calcification. 6. Opacification of right mastoid air cells. 7. Left frontal scalp edema or contusion. ASSESSMENT: ASPECTS ([place] Stroke Program Early CT Score) is 10. Laboratory Results WBC 7.1 10^3/uL (4.0-10.0) 09/20/22 07:50 RBC 3.65 10^6/uL (4.1-5.3) L 09/20/22 07:50 Hgb 11.1 g/dL (11.5-15.3) L 09/20/22 07:50 Hct 33.3 % (37.0-47.0) L 09/20/22 07:50 MCV 91.2 fl (81-99) 09/20/22 07:50 MCH 30.4 pg (28.0-34.0) 09/20/22 07:50 MCHC 33.3 g/dL (30.0-36.0) 09/20/22 07:50 RDW 13.4 % (12.1-15.1) 09/20/22 07:50 Plt Count 216 10^3/cmm (130-400) 09/20/22 07:50 MPV 10.7 fL (7.4-10.4) H 09/20/22 07:50 Neut % (Auto) 74.1 % 09/20/22 07:50 Lymph % (Auto) 17.3 % 09/20/22 07:50 Door % (Auto) 6.9 % 09/20/22 07:50 Eos % (Auto) 0.6 % 09/20/22 07:50 Baso % (Auto) 0.8 % 09/20/22 07:50 Neut # (Auto) 5.25 10^3/uL (1.8-7.7) 09/20/22 07:50 Lymph # (Auto) 1.2 10^3/uL (0.8-4.8) 09/20/22 07:50 Door # (Auto) 0.5 10^3/uL (0.2-0.9) 09/20/22 07:50 Eos # (Auto) 0.0 10^3/uL (0.0-0.8) 09/20/22 07:50 Baso # (Auto) 0.1 10^3/uL (0.0-0.1) 09/20/22 07:50 Nucleated RBC % (auto) 0 % 09/20/22 07:50 Nucleated RBCs # 0.0 /100WBC 09/20/22 07:50 PT 14.20 SECONDS (12.1-14.9) 09/20/22 07:50 INR 1.07 (0.8-1.2) 09/20/22 07:50 APTT 27.6 SECONDS (23.9-36.7) 09/20/22 07:50 Sodium 137 mmol/L (136-145) 09/20/22 07:50 Potassium 3.6 mmol/L (3.5-5.1) 09/20/22 07:50 Chloride 103 mmol/L (98-107) 09/20/22 07:50 Carbon Dioxide 22 mmol/L (22-29) 09/20/22 07:50 Anion Gap 15.6 (5-19) 09/20/22 07:50 BUN 27 mg/dL (8-23) H 09/20/22 07:50 Creatinine 1.3 mg/dL (0.5-0.9) H 09/20/22 07:50 GFR Calculation Not Reportable 09/20/22 07:50 Glucose 87 mg/dL (65-115) 09/20/22 07:50 Calculated Osmolality 288 mOsm/kg (285-295) 09/20/22 07:50 Calcium 8.9 mg/dL (8.5-10.5) 09/20/22 07:50 Total Bilirubin 0.9 mg/dL (0.15-1.2) 09/20/22 07:50 AST 17 U/L (0-32) 09/20/22 07:50 ALT 12 U/L (0-33) 09/20/22 07:50 Alkaline Phosphatase 71 U/L (35-105) 09/20/22 07:50 Total Protein 6.6 g/dL (6.6-8.7) 09/20/22 07:50 Albumin 3.8 g/dL (3.5-5.2) 09/20/22 07:50 Globulin 2.8 g/dL (1.3-4.6) 09/20/22 07:50 Discharge Plan Discharge Patient Disposition: Home Clinical Impression: Transient cerebral ischemia Condition: Stable Prescriptions: New aspirin 81 mg tablet,delayed release (DR/EC) 81 mg PO DAILY Qty: 30 0RF atorvastatin 40 mg tablet 40 mg PO DAILY Qty: 30 0RF clopidogrel 75 mg tablet 75 mg PO DAILY Qty: 30 0RF No Action omeprazole 40 mg capsule,delayed release(DR/EC) 40 mg PO DAILY 90 Days Qty: 90 0RF acetaminophen 325 mg Tablet 325 mg PO QID PRN (Reason: Pain) irbesartan-hydrochlorothiazide 150-12.5 mg Tablet 2 tab PO DAILY meloxicam 15 mg Tablet 15 mg PO BEDTIME Milk of Magnesia 400 mg/5 mL Suspension 30 ml PO DAILY PRN (Reason: Constipation) Dulcolax (bisacodyl) 10 mg Suppository 10 mg [place] DAILY PRN (Reason: Constipation) magnesium citrate Solution 300 ml PO DAILY PRN (Reason: Constipation) Mylanta 200-200-20 mg/5 mL Suspension 30 ml PO Q2H PRN (Reason: Indigestion) Rx Instructions: administer between meals Mucinex 600 mg Tablet Extended Release 12hr 600 mg PO Q12H Rx Instructions: x 5 days Mucinex 600 mg Tablet Extended Release 12hr 600 mg PO Q12H PRN (Reason: Congestion) risperidone 0.25 mg tablet 0.125 mg PO DAILY PRN (Reason: agitation) Qty: 10 0RF Rx Instructions: Start 1/2 tab (0.125mg) daily as needed for agitation. Can increase to full tab daily if lower dose not effective. Discharge Orders: Discharge ED (Routine); Ordered 09/20/22 Ordered By: Douglas Hurst Referrals: Priyanka Tariq MD [Primary Care Provider] - Patient Instructions: Opioid Safety, Pain Management Activity Restrictions/Additional Instructions: You are seen in the emergency room before question of a possible stroke. Your stroke score on arrival is [address] shows previously seen meningioma with no changes. After consultation with neurology is recommended that you take aspirin Plavix and atorvastatin to lower risk for future potential events. Also recommend that you get outpatient carotid and echocardiogram studies done contact manager will make arrangements for these. Coding Level of Care Code ED Barrel Marker for Mickie Ho
--- NOTE | 2022-09-20 07:32 | CTR_ITS ---
PROCEDURE INFORMATION: Exam: CT Head Without Contrast Exam date and time: 09/20/2022 7:26 AM Age: 86 years old Clinical indication: Stroke-like symptoms; Generalized weakness; Additional info: Symptoms of acute stroke TECHNIQUE: Imaging protocol: Computed tomography of the head without contrast. Radiation optimization: All CT scans at this facility use at least one of these dose optimization techniques: automated exposure control; mA and/or kV adjustment per patient size (includes targeted exams where dose is matched to clinical indication); or iterative reconstruction. Other technique: STROKE PROTOCOL was implemented. REPORTING DATA: Count of CT and Cardiac NM exams in prior 12 months: This patient has received [address] and 0 known cardiac nuclear medicine studies in the 12 months prior to the current study. COMPARISON: CT head wo con* [id number] 07/27/2022 2:25 PM RADIATION DOSE METRICS: Total DLP (mGy-cm): 1144.86 FINDINGS: Brain: Low attenuating white-matter changes suggesting micro vessel ischemia on a chronic basis. Partially calcified right parafalcine mass measuring 1.9 by 2.0 by 2.4 cm is stable most suggestive of meningioma. No surrounding mass effect. No significant change of the calcific hyperdense component to suggest intralesional hemorrhage. Intracranial vascular calcification. Small extra-axial soft tissue density right parietal lobe unchanged. Cerebral ventricles: No ventriculomegaly. Paranasal sinuses: Mucosal thickening of ethmoid sinuses. Mastoid air cells: See Soft tissues finding. Bones/joints: Similar area of cortical thinning for absence of the right mastoid air cell margin posteriorly. No acute fracture. Soft tissues: Left frontal scalp edema or contusion. Soft tissue or fluid opacification of right mastoid air cells. Other findings: Hemispheric volume loss. CT/CT head thrombolytic [id number] IMPRESSION: 1. Stable right parafalcine mass most suggestive of meningioma. 2. Small extra-axial sub cm density at the right parietal lobe is stable. 3. Hemispheric volume loss. 4. Low attenuating white-matter changes suggesting micro vessel ischemia on a chronic basis. 5. Intracranial vascular calcification. 6. Opacification of right mastoid air cells. 7. Left frontal scalp edema or contusion. ASSESSMENT: ASPECTS ([place] Stroke Program Early CT Score) is 10.
--- NOTE | 2022-09-20 07:38 | ECG_ITS ---
[facility] Test Date: 2022-09-20 Pat Name: Malgorzata Ghosh Department: Room: Gender: Female System Developer Associate Manager: : [id number] Requested By: Douglas Joshi Order Number: [id number] Reading MD: Tash Enciso M.D. Measurements Intervals Crystal Rate: 76 P: 53 TN: 191 QRS: 36 QRSD: 93 T: 76 QT: 377 QTc: 426 Interpretive Statements SINUS RHYTHM Poor R wave progression, possible old anteroseptal CA NONSPECIFIC T-WAVE ABNORMALITY No previous ECG available for comparison Electronically Signed On 09-20-2022 21:00:13 CDT by Tash Enciso M.D. [id number]
[2022-09-20 07:57] VITALS: BP 179/84; PULSE 75; RESP 18; TEMP 36.8; O2SAT 100
[2022-09-20 08:00] LABS: Basophils # 0.1 10^3/uL (0.0-0.1); Basophils % 0.8 %; Eosinophils % 0.6 %; Hematocrit 33.3 % (37.0-47.0); Hemoglobin 11.1 g/dL (11.5-15.3); Lymphocytes # 1.2 10^3/uL (0.8-4.8); Lymphocytes % 17.3 %; Mean Corpuscular HGB Conc 33.3 g/dL (30.0-36.0); Mean Corpuscular Hemoglobin 30.4 pg (28.0-34.0); Mean Corpuscular Volume 91.2 fl (81-99); Mean Platelet Volume 10.7 fL (7.4-10.4); Monocytes # 0.5 10^3/uL (0.2-0.9); Monocytes % 6.9 %; Neutrophils # 5.25 10^3/uL (1.8-7.7); Neutrophils % 74.1 %; Nucleated Red Blood Cells % 0 %; Platelet Count 216 10^3/cmm (130-400); Red Blood Count 3.65 10^6/uL (4.1-5.3); Red Cell Distribution Width 13.4 % (12.1-15.1); White Blood Count 7.1 10^3/uL (4.0-10.0)
[2022-09-20 08:11] LABS: INR 1.07 (0.8-1.2); Partial Thromboplastin Time 27.6 SECONDS (23.9-36.7)
[2022-09-20 08:18] LABS: Alanine Aminotransferase 12 U/L (0-33); Albumin Level 3.8 g/dL (3.5-5.2); Alkaline Phosphatase 71 U/L (35-105); Anion Gap 15.6 (5-19); Aspartate Amino Transferase 17 U/L (0-32); Blood Urea Nitrogen 27 mg/dL (8-23); Calcium 8.9 mg/dL (8.5-10.5); Carbon Dioxide 22 mmol/L (22-29); Chloride 103 mmol/L (98-107); Globulin 2.8 g/dL (1.3-4.6); Glucose 87 mg/dL (65-115); Osmolality Calculated 288 mOsm/kg (285-295); Potassium 3.6 mmol/L (3.5-5.1); Sodium 137 mmol/L (136-145); Total Bilirubin 0.9 mg/dL (0.15-1.2); Total Protein 6.6 g/dL (6.6-8.7)
[2022-09-20 09:21] VITALS: PULSE 69; RESP 14; O2SAT 100
--- NOTE | 2022-09-20 09:34 | PM.CONSULT ---
Providers/Reason For Consult Consulting Physician/Specialty*: Antoine Georges MD neurology and epilepsy Reason for Consult*: Code stroke at 7:17 AM Primary Care Provider: Priyanka Tariq MD History of Present Illness History of Present Illness Malgorzata Ghosh is a 86 year old female who has a history of dementia and is a custodial resident. According to the ER nurse caring for the patient at [facility] emergency room, the patient was reported to fall and sustaining closed head trauma to the left side of her head and face. Around midnight on 09/19/2022, the patient was reported to fall and was experiencing altered mental status and drooling and leaning to the right. The patient was brought in via EMS to [facility] emergency room and code stroke was initiated at 7:17 AM. Patient was transferred to ER room 13. I arrived at the emergency room and was awaiting at ER room 13 while the patient was undergoing her emergency noncontrast head CT scan. Results of head CT: 1. ? Stable right parafalcine mass most suggestive of meningioma. 2. ? Small extra-axial sub cm density at the right parietal lobe is stable. 3. ? Hemispheric volume loss. 4. ? Low attenuating white-matter changes suggesting micro vessel ischemia on a chronic basis. 5. ? Intracranial vascular calcification. 6. ? Opacification of right mastoid air cells. 7. ? Left frontal scalp edema or contusion. Upon neurological assessment the patient's NIH score = 0. The patient was alert and oriented to person. She had no focal weakness but there was remote left facial bruising and swelling over the left periorbital region and left cheek. Patient had a reported fall 2 weeks prior to this emergency room evaluation. Past medical history: Dementia Medications at the custodial: Mirtazapine 30 mg p.o. nightly Melatonin 10 mg p.o. nightly Meggestrol 10 mL p.o. daily Drug allergies: None Habits: Unknown Review of Systems General: Reports: 10 or more systems reviewed and unremarkable except in HPI and below Eyes: Reports: decreased night vision (Left periorbital and left cheek bruising and swelling to a fall ) Neuro: Reports: other (Drooling and leaning to the right at the custodial with ams) Psych: Reports: memory loss and homicidal ideation (DEMENTIA) Medications/Allergies Home Medications Medication Instructions Recorded Confirmed Last Taken Type omeprazole 40 mg capsule,delayed 40 mg PO DAILY 90 days #90 caps 05/22/22 07/27/22 Unknown Rx release acetaminophen 325 mg tablet 325 mg PO QID PRN Pain 07/27/22 07/27/22 Unknown History aluminum-mag hydroxide-simethicone 30 ml PO Q2H PRN Indigestion 07/27/22 07/27/22 Unknown History 200 mg-200 mg-20 mg/5 mL oral susp bisacodyl 10 mg rectal suppository 10 mg IN DAILY PRN Constipation 07/27/22 07/27/22 Unknown History (Dulcolax (bisacodyl)) guaifenesin 600 mg tablet, 600 mg PO Q12H 07/27/22 07/27/22 Unknown History extended release 12 hr (Mucinex) guaifenesin 600 mg tablet, 600 mg PO Q12H PRN Congestion 07/27/22 07/27/22 Unknown History extended release 12 hr (Mucinex) irbesartan 150 2 tab PO DAILY 07/27/22 07/27/22 07/26/22 History mg-hydrochlorothiazide 12.5 mg tablet magnesium citrate 300 ml PO DAILY PRN Constipation 07/27/22 07/27/22 Unknown History magnesium hydroxide 400 mg/5 mL 30 ml PO DAILY PRN Constipation 07/27/22 07/27/22 Unknown History oral suspension (Milk of Magnesia) meloxicam 15 mg tablet 15 mg PO BEDTIME 07/27/22 07/27/22 Unknown History risperidone 0.25 mg tablet 0.125 mg PO DAILY PRN agitation 07/27/22 Unknown Rx #10 tabs aspirin 81 mg tablet,delayed 81 mg PO DAILY #30 tabs 09/20/22 Unknown Rx release atorvastatin 40 mg tablet 40 mg PO DAILY #30 tabs 09/20/22 Unknown Rx clopidogrel 75 mg tablet 75 mg PO DAILY #30 tabs 09/20/22 Unknown Rx Allergies Allergy/AdvReac Type Severity Reaction Status Date / Time No Known Allergies Allergy Verified 07/11/22 07:01 PFSH Acute PFSH: Medical History CKD (chronic kidney disease) History of essential hypertension Hypertension Hypokalemia Misuse of [id number]-xlnflih medications Social History (Reviewed 09/20/22 @ 08:25 by RUPINDER Jewell Smoking and tobacco status: current every day smoker Alcohol intake: never Substance/Drug Use: never Female Reproductive History: Spontaneous abortions: No Vitals/I&O/Wt Last Vital Signs Temp 98.2 F 09/20/22 07:57 Pulse 69 09/20/22 09:21 Resp 14 09/20/22 09:21 BP 179/84 09/20/22 07:57 Pulse Ox 100 09/20/22 09:21 O2 Del Method Room Air 09/20/22 09:21 Physical Exam Narrative: Blood pressure 179/84 NIH score = 0 The patient is alert and oriented to person. Speech clear. Head revealed periorbital subcutaneous swelling around the left and over the left cheek related to a fall at the custodial that occurred 2 weeks prior to this assessment. Pupils 3 mm bilaterally. Pupils equal round and reactive to light and accommodation. Extraocular movements intact. Visual ramsay appeared full via confrontation. There were no nystagmus. Head revealed no tenderness to palpation. Neck supple without obvious bruits. Cranial nerves II through XII intact with no obvious facial weakness. Patient was able to elevate her palate and protrude her tongue on command. Motor 5/5 bilaterally. Motor testing performed with the patient lying supine on the stretcher. Deep tendon reflexes 1-2+ bilaterally. Plantar responses flexor bilaterally. There was no clonus. There was no drift in her upper extremities or lower extremities. Sensory examination intact to touch, and pinprick. There was no extinction on double sensory stimulation. There was no obvious ataxia on upper and lower extremity testing. Throat clear. Lungs clear. Heart regular rhythm and rate. Extremities were negative for clubbing cyanosis or edema. Data 09/20/22 07:50 09/20/22 07:50 A&P Assessment and plan (1) TIA involving left internal carotid artery: Plan Assessment: 1. Code stroke manifested as altered mental status drooling and leaning to the right at the custodial at midnight on 09/19/2022. The patient's NIH score = 0. Since the patient's symptoms began greater than 7 hours prior to presenting to the emergency room and her NIH score = 0, the patient was not a candidate for tPA and no tPA was administered 2. Abnormal head CT secondary to chronic findings secondary to right parafalcine mass suggestive of meningioma and right parietal extra-axial lesion 3. History of dementia patient resides in a custodial Plan: 1. Agree with emergency room physician treatment plan 2. Patient stable from neurological standpoint to be discharged back to the custodial 3. Recommend fall precautions Consult Attestations Medical Necessity Statement: Patient was evaluated by neurology for code stroke Time Spent in Patient Care: I spent 30 minutes at the bedside obtaining the patient's history, reviewing the patient's custodial medications, and performing neurological assessment. Coding Level of Care Code 54671 Diagnoses TIA involving left internal carotid artery G45.1 Time Spent (min) 30
--- NOTE | 2022-09-20 12:45 | DCPLANNER ---
Addendum entered by Aleah Dowling 12/28/22 12:03: insurance territory manager received the following message from centralized scheduling regarding out patient tests ordered: I have two orders for Malgorzata Ghosh [address] Hurst that have been inactivated due to not being able to reach patient. Original Note: insurance territory manager had message to schedule an out patient carotid and echo for patient. insurance territory manager faxed signed order to centralized scheduling, who will call patient with appointment information.
== END 2022-09-20 09:39 | disposition home or self-care (01) ==
PROVIDERS: Emergency Provider Family Medicine; PCP Family Medicine
DX: G45.9 Transient cerebral ischemic attack, unspecified (principal); I12.9 Hypertensive chronic kidney disease with stage 1 through stage 4 chronic kidney disease, or unspecified chronic kidney disease; N18.9 Chronic kidney disease, unspecified; F17.210 Nicotine dependence, cigarettes, uncomplicated
CPT/HCPCS: 36415; 70450; 80053; 85025; 85610; 85730; 93005; 99284

== ENCOUNTER 2023-12-11 17:19 | Emergency (ER) | payer MEDICARE, MEDICAID, SELFPAY ==
[2023-12-11 17:21] VITALS: BP 140/72; PULSE 75; TEMP 37.6; O2SAT 97
--- NOTE | 2023-12-11 17:27 | CTR_ITS ---
PROCEDURE INFORMATION: Exam: CT Head Without Contrast Exam date and time: 12/11/2023 5:42 PM Age: 88 years old Clinical indication: Injury or trauma; Fall; Other: Pain; Additional info: Traumatic head pain TECHNIQUE: Imaging protocol: Computed tomography of the head without contrast. Radiation optimization: All CT scans at this facility use at least one of these dose optimization techniques: automated exposure control; mA and/or kV adjustment per patient size (includes targeted exams where dose is matched to clinical indication); or iterative reconstruction. COMPARISON: CT head thrombolytic [id number] 09/20/2022 7:26 AM RADIATION DOSE METRICS: Total DLP (mGy-cm): 877.5 FINDINGS: Brain: No acute intracranial hemorrhage or territorial infarction. Unchanged partially calcified right parafalcine mass measuring approximately 2.2 x 2.1 cm suggestive of a meningioma. Unchanged mild mass effect on the adjacent brain parenchyma. Mild microangiopathy. Cerebral ventricles: No ventriculomegaly. Paranasal sinuses: Visualized sinuses are unremarkable. No fluid levels. Mastoid air cells: Unchanged right mastoid effusion with cortical thinning of the posterior margin. Bones: No acute fracture. Soft tissues: Mild thickening of the left frontal scalp, unchanged. CT/CT head wo con* [id number] IMPRESSION: No acute intracranial findings. Unchanged partially calcified 2.2 cm right parafalcine mass suggestive of a meningioma. Unchanged mild mass effect on the adjacent brain parenchyma.
--- NOTE | 2023-12-11 18:01 | W.ED.HEATRA ---
HPI - Head Injury General: Chief complaint: Head Injury Stated complaint: Fall Time Seen by Provider: 12/11/23 17:24 History of Present Illness: 88-year-old female with a history of dementia who is on Plavix who presents to the emergency room by ambulance from the skilled nursing after falling forward and hitting her head out of her wheelchair. No known loss of consciousness. She has had no vomiting since. She reports no pain at this time. From what I can gather she is at her baseline. No reports of fevers. She does not have a cough. Review of Systems General: Reports: ROS unobtainable due to mental status [facility] ED PFSH: Medical History CKD (chronic kidney disease) History of essential hypertension Hypertension Hypokalemia Misuse of cmpd-mtw-swlsifa medications Social History Smoking and tobacco/nicotine status: current every day tobacco/nicotine user Alcohol intake: never Substance/Drug Use: never Female Reproductive History: Spontaneous abortions: No Physical Exam Narrative: EXAM NARRATIVE: General: Alert, no acute distress. Skin: Warm, dry. Some bruising on the right proximal humerus. Abrasion on her right kaplan. Head: Normocephalic, bruising to the forehead.. Neck: Supple, trachea midline. Eye: Extraocular movements are intact. Ears, nose, mouth and throat: mucosa moist. Cardiovascular: Regular, Normal peripheral perfusion. Respiratory: Lungs are clear to auscultation, respirations are non-labored, breath sounds are equal, Symmetrical chest wall expansion. Gastrointestinal: Soft, Nontender, Non distended, Normal bowel sounds. Musculoskeletal: Normal ROM, no deformity. Neurological: Alert but not oriented, No focal neurological deficit observed. Psychiatric: Patient seems confused/demented. Course Vital Signs: Vital signs: Vital Signs Temperature 99.6 F 12/11/23 17:21 Pulse Rate 75 12/11/23 17:21 Blood Pressure 140/72 12/11/23 17:21 Pulse Oximetry 97 12/11/23 17:21 Oxygen Delivery Me thod Room Air 12/11/23 17:21 MDM - Head Injury Medcial Decision Making CT head: No acute intracranial process. no intracranial hemorrhage, no evidence of infarct. no evidence of acute fracture.This was reviewed and interpreted by myself the ER physician. X-ray of the right numerous: No fractures. No dislocations. This was reviewed and interpreted by myself the emergency room physician. I also reviewed the radiology report. Assessment and plan: Head injury Fall - Discharged home - Discussed plan with patient. Answered any questions. - Evaluation and treatment of this problem were appropriate in the emergency setting. Lab Data Radiology Impressions Head CT 12/11/23 17:27 IMPRESSION: No acute intracranial findings. Unchanged partially calcified 2.2 cm right parafalcine mass suggestive of a meningioma. Unchanged mild mass effect on the adjacent brain parenchyma. Humerus X-Ray 12/11/23 18:16 IMPRESSION: No acute fractures or subluxations. All radiology interpretation(s) finalized by discharge Discharge Plan Discharge Patient Disposition: Home Clinical Impression: Closed head injury Condition: Stable Prescriptions: No Action omeprazole 40 mg capsule,delayed release(DR/EC) 40 mg PO DAILY 90 Days Qty: 90 0RF acetaminophen 325 mg Tablet 325 mg PO QID PRN (Reason: Pain) irbesartan-hydrochlorothiazide 150-12.5 mg Tablet 2 tab PO DAILY meloxicam 15 mg Tablet 15 mg PO BEDTIME Milk of Magnesia 400 mg/5 mL Suspension 30 ml PO DAILY PRN (Reason: Constipation) Dulcolax (bisacodyl) 10 mg Suppository 10 mg PA DAILY PRN (Reason: Constipation) magnesium citrate Solution 300 ml PO DAILY PRN (Reason: Constipation) Mylanta 200-200-20 mg/5 mL Suspension 30 ml PO Q2H PRN (Reason: Indigestion) Rx Instructions: administer between meals Mucinex 600 mg Tablet Extended Release 12hr 600 mg PO Q12H Rx Instructions: x 5 days Mucinex 600 mg Tablet Extended Release 12hr 600 mg PO Q12H PRN (Reason: Congestion) risperidone 0.25 mg tablet 0.125 mg PO DAILY PRN (Reason: agitation) Qty: 10 0RF Rx Instructions: Start 1/2 tab (0.125mg) daily as needed for agitation. Can increase to full tab daily if lower dose not effective. aspirin 81 mg tablet,delayed release (DR/EC) 81 mg PO DAILY Qty: 30 0RF atorvastatin 40 mg tablet 40 mg PO DAILY Qty: 30 0RF clopidogrel 75 mg tablet 75 mg PO DAILY Qty: 30 0RF Discharge Orders: Discharge ED (Routine); Ordered 12/11/23 Ordered By: Rain Duckworth Referrals: Priyanka Tariq MD [Primary Care Provider] - Discharge Diet: Usual diet Discharge Activity: Increase activity as tolerated Patient Instructions: Fall Prevention for Older Adults (ED) Activity Restrictions/Additional Instructions: Thank you for choosing [facility] for your healthcare needs today. Please realize this is an emergency room and that we are providing you with a medical screening exam and this may not be complete and all inclusive of all the testing and or work up that you may need to determine your ailment or severity of your illness. You have been screened and evaluated and felt safe for discharge. Health conditions do change or evolve sometimes and as such it is important that you follow up with your Primary Doctor to be re checked, 3-5 days is a general good time frame for follow up. You are always welcome to return to the ED for re assessment if your symptoms are worsening or you have new concerns Coding Level of Care Code ED [employer] Technician for Mickie Ho
--- NOTE | 2023-12-11 18:16 | XRR_ITS ---
PROCEDURE INFORMATION: Exam: XR Right Humerus Exam date and time: 12/11/2023 6:21 PM Age: 88 years old Clinical indication: Injury or trauma; Fall; Blunt trauma (contusions or hematomas); Arm, upper; Right; Additional info: Fall, arm pain TECHNIQUE: Imaging protocol: Radiologic exam of the right humerus. Views: 2 or more views. COMPARISON: CR XR chest 1V portable [id number] 07/27/2022 2:08 PM FINDINGS: Bones/joints: No acute fractures or subluxations. Moderate degenerative changes of the right shoulder with joint space narrowing. The acromioclavicular and glenohumeral joint are well aligned. The elbow appears intact. Soft tissues: Normal. XR/[place] [id number] IMPRESSION: No acute fractures or subluxations.
--- NOTE | 2023-12-11 18:46 | PC.NURSE ---
Report called to Lucina at [facility] with d/c information.
[2023-12-11 19:19] VITALS: BP 138/65; PULSE 78; O2SAT 97
[2023-12-11 20:42] VITALS: BP 158/88; PULSE 76; RESP 18; O2SAT 97
[2023-12-11 22:53] VITALS: BP 162/70; PULSE 79; RESP 18; O2SAT 100
== END 2023-12-11 22:56 | disposition home or self-care (01) ==
PROVIDERS: Emergency Provider Emergency Medicine; PCP Family Medicine
DX: S09.8XXA Other specified injuries of head, initial encounter (principal); S40.021A Contusion of right upper arm, initial encounter; S80.811A Abrasion, right lower leg, initial encounter; I12.9 Hypertensive chronic kidney disease with stage 1 through stage 4 chronic kidney disease, or unspecified chronic kidney disease; N18.9 Chronic kidney disease, unspecified; Z72.0 Tobacco use; W05.0XXA Fall from non-moving wheelchair, initial encounter; Y92.129 Unspecified place in nursing home as the place of occurrence of the external cause; Z79.02 Long term (current) use of antithrombotics/antiplatelets; Z79.82 Long term (current) use of aspirin
CPT/HCPCS: 70450; 73060; 99284